=== PATIENT | female | born 1970 ===

== ENCOUNTER 2017-07-30 08:35 | Day surgery (SDC) | payer BC ==
[2017-07-24 16:17] VITALS: BMI 42.0
[~2017-07-30] VITALS: Ht 160 cm; Wt 109.1 kg
--- NOTE | 2017-07-30 08:01 | History and Physical ---
History & Physical Date Jul 30, 2017. Chief Complaint Right ankle/hindfoot pain History of Present Illness The patient is a 46 year old female with complaints of persistent right ankle and hindfoot pain with worsening flat foot deformity. She was treated conservatively but has failed all conservative tx. She is now being set up for surgical tx. Past Medical/Surgical History PMH: DM, HTN, depression, obesity, genital herpes, hypokalemia, elevated liver enzymes Past surgical hx: left breast biopsy, ORIF femur fx, ankle surgery, right knee fx surgery in 2002 Social hx: Denies tobacco use and occasionally alcohol use. Family hx: noncontributory Allergies Coded Allergies: Adhesives (Verified Allergy, Unknown, SKIN IRRITATION WITH TAPE,STERI STRIPS, 07/24/17) Morphine (Verified Allergy, Unknown, ITCHY, 07/24/17) Home Medications Scheduled Buspirone Hcl (Buspirone Hcl), 20 MG PO QAM Lamotrigine (Lamictal), 50 MG PO BID Lisinopril (Zestril), 40 MG PO QAM Metformin Hcl (Glucophage), 500 MG PO BID Multivitamin (Multivitamin), 1 TAB PO QAM Sertraline (Zoloft), 50 MG PO QAM Valacyclovir (Valtrex), 500 MG PO QAM [Hydrochlorothiazide], 1 TAB PO QAM Scheduled PRN Ibuprofen (Advil), 800 MG PO BID PRN for RN Physical Examination Skin: warm/dry, no rash Eyes: normal inspection ENT: normal ENT inspection Head: normocephalic, atraumatic Neck: supple, no adenopathy, trachea midline Respiratory/Chest: lungs clear, normal breath sounds, no respiratory distress Cardiovascular: regular rate, rhythm Abdomen / GI: normal bowel sounds, non tender Extremities: + pertinent finding (Right ankle: pes planovalgus deformity. Decrease ROM, particularly with dorsiflexion. Tender at the medial and lateral hindfoot. ) Neurologic/Psych: no motor/sensory deficits, alert, oriented x 3 Diagnosis Right hindfoot osteoarthritis Right achilles contracture Plan of Treatment Recommend a right triple arthrodesis, percutaneous tendoachilles lengthening, application of platelet rich plasma. All potential risks, benefits, complications, alternatives, and rehab have been discussed and the patient wishes to proceed. She will be scheduled for 07.31.17 with plan of ASA 81 mg BID x 4-6 wks for DVT prophylaxis.
[~2017-07-30 08:35] MED LIST: BUPIVACAINE 0.25% 30 ML VIAL ONE; BUSP-8 PO; CEFAZOLIN 2000MG IV PUSH 15 ML IV SCH; DEXAMETHASONE SOD INJ 4 MG/ML VIAL ONE; EpINEphrine INJ 1MG/ML AMP 1 MG/ML AMP ONE; GLC/500 PO; HYDROCHLOROTHIAZIDE PO; IBUP-1050 PO; LACTATED RINGER'S 1000ML 1,000 ML IV SCH; LAMO25TA PO; LISI40TA PO; MULT-506 PO; SERT50TA PO; VALA500T60 PO
[2017-07-30 09:03] VITALS: BP 147/91; PULSE 71; TEMP 36.7; O2SAT 96; BMI 42.0
[2017-07-30 09:06] VITALS: BP 147/91; PULSE 71; TEMP 36.7; O2SAT 96; Ht 160 cm; Wt 109.1 kg
[2017-07-30] MEDS ORDERED: MIDAZOLAM HCL 1 MG/ML 2ML VIAL ONE (09:18)
[2017-07-30] MEDS ORDERED: FENTANYL CITRATE INJ 50 MCG/1 ML 2 ML VIAL ONE ×2 (09:19)
--- NOTE | 2017-07-30 10:39 | History & Physical Bridge Note ---
H&P Re-Evaluation Bridge Note: I have examined the patient, reviewed the History & Physical and in the interval since the performance of the History & Physical I have noted the following changes of clinical significance: No changes noted
[2017-07-30] MEDS ORDERED: BUPIVACAINE 0.5 % 5 MG/1 ML PF 10ML VIAL ONE (10:40)
[2017-07-30] MEDS ORDERED: BACITRACIN 50000 UNIT VIAL ONE (11:18)
[2017-07-30] MEDS ORDERED: BUPIVACAINE/EPINEPHRINE 0.5% MPF 1:200,000 30 ML VIAL ONE (11:18)
[2017-07-30] MEDS ORDERED: BUPIVACAINE 0.5 % 5 MG/1 ML MPF 30ML VIAL ONE (11:23)
[2017-07-30] MEDS ORDERED: ATROPINE SULFATE 0.1 MG/ML 5ML SYR IV PRN (11:30)
[2017-07-30] MEDS ORDERED: FENTANYL CITRATE INJ 50 MCG/1 ML 2 ML VIAL IV PRN (11:30)
[2017-07-30] MEDS ORDERED: PROMETHAZINE HCL INJ 6.25 MG in SODIUM CHLORIDE 0.9% 50ML 50 ML IV PRN (11:30)
[2017-07-30] MEDS ORDERED: ONDANSETRON INJ 2 MG/ML 2 ML VIAL IV PRN (11:30)
[2017-07-30] MEDS ORDERED: EpHEDrine SULFATE INJ 50 MG/ML AMP IV PRN (11:30)
[2017-07-30] MEDS ORDERED: DEXAMETHASONE SOD INJ 4 MG/ML VIAL ONE (12:23)
[2017-07-30] MEDS ORDERED: SODIUM CHLORIDE 0.9% INJ 10 ML VIAL ONE (12:23)
[2017-07-30] MEDS ORDERED: EpHEDrine SULFATE 50MG/5ML SYR ONE (12:23)
[2017-07-30] MEDS ORDERED: LIDOCAINE HCL 2% 2 ML VIAL (20MG/ML) ONE (12:23)
[2017-07-30] MEDS ORDERED: PROPOFOL IV EMULSION 10 MG/ML 20 ML VIAL IV ONE ×2 (12:23→12:54)
[2017-07-30] MEDS ORDERED: ONDANSETRON INJ 2 MG/ML 2 ML VIAL ONE (12:23)
[2017-07-30] MEDS ORDERED: LARYING-O-JET KIT (LTA) ONE (12:23)
[2017-07-30] MEDS ORDERED: ROCURONIUM BROMIDE 10 MG/ML 5 ML VIAL IV ONE (12:23)
[2017-07-30] MEDS ORDERED: PHENYLEPHRINE 100MCG/ML 5ML SYR ONE (12:23)
[2017-07-30] MEDS ORDERED: GLYCOPYRROLATE INJ 0.2 MG/ML VIAL ONE (12:23)
[2017-07-30] MEDS ORDERED: NEOSTIGMINE METHYLSULFATE 5 MG/5 ML SYR ONE (12:23)
[2017-07-30] MEDS ORDERED: CALCIUM CHLORIDE 10% 10 ML SYR ONE (12:44)
[2017-07-30] MEDS ORDERED: THROMBIN 5000 UNITS KIT ONE (12:44)
--- NOTE | 2017-07-30 14:06 | [facility] Post Operative Brief Note ---
Immediate Operative Summary Operative Date Jul 30, 2017. Pre-Operative Diagnosis Right hindfoot osteoarthritis, Right achilles contracture Post-Operative Diagnosis Right hindfoot osteoarthritis, Right achilles contracture, EXOSTOSIS tALUS Procedure(s) Performed Right Triple Arthrodesis, Percutanteous Tendon Achilles Lengthening, Application of Platelet Rich Plasma, Exostectomy Talus Surgeon Dr. Evangelista Yarn Texture Machine Operator Surgeon(s) Beni Marcano PA-C Estimated Blood Loss 10 cc Findings Consistent with Post-Op Diagnosis Specimens none per surgeon Drains HV x 1 Anesthesia Type General Regional Complication(s) none Disposition Accompanied Pt To Recover: no Disposition: Recovery Room / PACU
[2017-07-30] MEDS ORDERED: ASPI81TA28 PO (14:13)
[2017-07-30] MEDS ORDERED: OXYSR10 PO (14:13)
[2017-07-30] MEDS ORDERED: OXYC-57 PO (14:13)
[2017-07-30] MEDS ORDERED: PROM25TA9 PO (14:13)
--- NOTE | 2017-07-30 14:14 | Discharge Instructions ---
Discharge Instructions Date of Service Jul 30, 2017. Admission Reason for Admission: Right Ankle Pain, Retained Hardware Discharge Discharge Diagnosis / Problem: right ankle hindfoot osteoarthritis Discharge Goals Goal(s): Decrease discomfort, Improve function Activity Recommendations Activity Limitations: per Instructions/Follow-up section Weightbearing Status: Right non-weightbearing . Instructions / Follow-Up Instructions / Follow-Up ACTIVITY RECOMMENDATIONS: Limitations: No weight bearing to affected limb at all times. SPECIAL CARE INSTRUCTIONS: * Some drainage onto the dressing is normal and is no cause for alarm. * Some swelling is natural especially after walking. * When resting, keep your foot elevated above the level of your heart. * Call [facility] if you notice: -Increased drainage -Fever over 101 degrees F -Severe constant pain BANDAGE: * Leave bandage/cast in place unless otherwise directed. * Keep bandage/cast dry at all times. FOLLOW UP VISIT WITH DR. YEAGER If appointment is not already scheduled: Please call [facility] after you get home today to schedule a follow-up appointment for [address] Yeager at . Current Hospital Diet Patient's current hospital diet: Discharge Diet Recommended Diet: Diabetes Type 2 Diet Procedures Procedures Performed: Right Triple Arthrodesis, Percutanteous Tendon Achilles Lengthening, Application of Platelet Rich Plasma, Exostectomy Talus Pending Studies Studies pending at discharge: no Medical Emergencies . Who to Call and When: Medical Emergencies: If at any time you feel your situation is an emergency, please call 911 immediately. . Non-Emergent Contact Non-Emergency issues call your: Surgeon Call Non-Emergent contact if: temperature is above 101, your pain is not controlled, your pain is worsening . "Provider Documentation" section prepared by Beni Marcano. .
[2017-07-30] MEDS ORDERED: OXYCODONE/ACETAMINOPHEN 5-325 TAB PO PRN (14:15)
--- NOTE | 2017-07-30 14:25 | DIAGNOSTIC IMAGING REPORT ---
R ANKLE 2 VIEWS CLINICAL HISTORY: 46 years-old Female presenting with RT TRIPLE ARTHRODESIS. TECHNIQUE: 2 fluoroscopic spot image(s) obtained as part of an intraoperative procedure. COMPARISON: None. FINDINGS/IMPRESSION: For lack screw fixation of the midfoot and hindfoot. There appears to be arthrodesis of the talonavicular, talocalcaneal, and calcaneocuboid articulations. Extensive degenerative changes or arthrodesis at the ankle mortise. Please see surgical report for further details. Fluoroscopy dosage (mGy): 0.65. Fluoroscopy time: 23.7. Number of fluoroscopic spot images: 2. Electronically signed by: Miguel Black M.D. 07/30/2017 2:24 PM Dictated Date/Time: 07/30/2017 2:22 PM
--- NOTE | 2017-07-30 14:59 | DIAGNOSTIC IMAGING REPORT ---
R ANKLE MIN 3 VIEWS ROUTINE, R FOOT MIN 3 VIEWS ROUTINE CLINICAL HISTORY: Postop. COMPARISON STUDY: Right ankle 07/30/2017. FINDINGS: Overlying splint material obscures fine bony detail. Moderate osteoarthritis at the tibiotalar joint is again noted. Skin silas at the posterior aspect of the ankle. Surgical drains are in place. There are 4 cannulated screws resulting triple arthrodesis of the hindfoot. The hardware appears intact. No fracture or dislocation. IMPRESSION: Status post triple arthrodesis of the hindfoot. The hardware appears intact. Electronically signed by: Kodak Huber M.D. 07/30/2017 2:57 PM Dictated Date/Time: 07/30/2017 2:48 PM
[2017-07-30 15:00] VITALS: BP 138/68; PULSE 83; TEMP 37.1; O2SAT 96
[2017-07-30 15:30] VITALS: BP 147/84; PULSE 90; TEMP 37.1; O2SAT 97
--- NOTE | 2017-07-30 15:40 | OPERATIVE REPORT ---
DATE OF OPERATION: 07/30/2017 PREOPERATIVE DIAGNOSES: 1. Right hindfoot degenerative joint disease with osteoarthritis. 2. Achilles tendon contracture. POSTOPERATIVE DIAGNOSES: 1. Right hindfoot degenerative joint disease with osteoarthritis. 2. Achilles contracture. 3. Exostosis of the talus. PROCEDURES: 1. Right triple arthrodesis. 2. Percutaneous tendo Achilles lengthening. 3. Exostectomy of the talus. 4. Application of platelet rich plasma concentrate. SURGEON: Dr. Vitaliy Evangelista. CANDY MIXER: Beni Marcano PA-C, who was present for patient positioning, sterile prep and drape, management of retractors and instruments. He was present through the critical portions of the case including wound closure, application of sterile dressing and transport of the patient to recovery. ANESTHESIA: General LMA with popliteal block. SPECIMENS: None. DRAINS: Hemovac x1. COMPLICATIONS: None. BLOOD LOSS: 10 mL. PERTINENT HISTORY: This is a 46-year-old female who had previous traumatic injury to her right hindfoot and ankle. She had prior surgery at another center. She had a ligament reconstruction and bone fixation. She had developed significant pain and deformity over the last several years and has failed all measures of conservative management including injections, anti-inflammatories, topical agents, use of a brace, assistive devices and shoe inserts. Radiographs and CT scans demonstrate severe degenerative arthritis with loss of joint spaces, marginal osteophytes, subchondral sclerosis and marginal osteophytes of the hindfoot including the subtalar, talonavicular and calcaneocuboid joints. She also had degenerative arthritis of the ankle also noted. The patient was then scheduled for surgery as indicated. DESCRIPTION OF PROCEDURE: The patient was taken to the Operating Suite, placed supine on the Operating Room table, after consent and identification of the proper operative site, the patient was anesthetized. LMA was placed. Tourniquet was placed high on the right lower extremity. Right lower extremity was then sterilely prepped and draped in the usual fashion. Exsanguinated with an Esmarch bandage and tourniquet inflated to 350 mmHg. Next, the foot was held in dorsiflexion and a three-part percutaneous incision was made with an 11-blade scalpel to lengthen the Achilles tendon using standard technique. Next, the stab incisions were then closed using interrupted skin silas. Next, the 15-blade scalpel was used to make an incision from the distal aspect of the fibula to the base of the fourth metatarsal. The incision was deepened through subcutaneous tissue and meticulous hemostasis was obtained with electrocautery. Subcutaneous nerves were identified, retracted and protected. The extensor digitorum brevis was identified and was sharply elevated from the anterior process of the calcaneus revealing the sinus tarsi. Next, the sinus tarsi was debrided carefully with a rongeur and 15-blade scalpel. A cervical lamina business continuity coordinator was placed in the sinus tarsi opening the subtalar joint. Subtalar joint was then prepared with the use of a curette and rongeur to resect the articular surfaces down to subchondral bleeding bone. Irrigation was performed with sterile normal saline and then 2-mm drill bit was used to further prepare the joint surface with multiple drill holes in both surfaces of the subtalar joint and a small osteotome and mallet were used to fish scale the joint surfaces to increase surface area and bleeding. Next, the calcaneocuboid joint was then entered with the 15-blade scalpel, debrided of soft tissue and then a lamina business continuity coordinator was placed in the joint opening it for preparation with a curette and rongeur to remove any articular surface down to subchondral bleeding bone. Next, the 2-mm drill bit was used to further prepare the joint with multiple drill holes into the joint and then a small osteotome and mallet were used to fish scale the joint. Next, the 15-blade was used to make an incision from the distal aspect of the tibia to the base of the naviculocuneiform joint. The incision was deepened through subcutaneous tissue. Meticulous hemostasis obtained with electrocautery. A Weitlaner retractor was placed in the wound. The greater saphenous vein was identified, retracted and protected. The capsule of the talonavicular joint was then entered sharply with a 15-blade scalpel and elevated both superior and inferiorly. There was noted to be a large exostosis on the dorsal and dorsal medial aspects of the talus and a rongeur was then used to resect the large exostoses, which were providing a soft tissue impingement with a rongeur. A small Alba was placed on the neck of the talus and further soft tissue elevation was performed with the 15-blade scalpel until the talonavicular joint was clearly visualized. The articular surface was then debrided with curette and rongeur and a cervical lamina business continuity coordinator was placed in the joint. Next, it was irrigated with sterile normal saline and a 2-mm drill bit was used to make multiple holes in the joint surfaces and fish scaling was performed with a small osteotome and mallet. Next, the medial and lateral incisions were irrigated with sterile normal saline and the joint surfaces were then aligned appropriately based on alignment of the lower extremity and the kneecap. Subtalar joint was aligned and then a 7.3-mm cannulated guidepin was driven from the superior aspect of the talus across the subtalar joint into the calcaneus under fluoroscopic control. Next, an appropriate length 7.3-mm short-thread screw was placed under fluoroscopic control and countersunk slightly. Next, the guidepin was removed. Next, 1.25-mm guidepins x 2 were used to stabilize the talonavicular joint in appropriate alignment and then the calcaneocuboid joint was then stabilized with appropriate alignment under fluoroscopic control. Next, appropriate length of 4-mm short-thread cannulated screws were placed across the talonavicular and calcaneocuboid joints respectively under fluoroscopic control. All guidepins were removed. Wounds were irrigated with sterile normal saline and bone graft was then packed in and around the subtalar, talonavicular and calcaneocuboid joints which was comprised of 30 cc of cancellous bone chips. A 10-Amharic single lumen Hemovac drain was then placed in the lateral aspect of the wound exiting dorsolaterally and the extensor digitorum brevis then closed back to its origin with interrupted 2-0 Vicryl sutures. The talonavicular joint capsule was closed using 2-0 Vicryl sutures. The dermis was closed using buried interrupted 3-0 Vicryl sutures medially and laterally and then skin incisions were closed using 4-0 Nylon sutures. A sterile compressive dressing and bulky Robbi-Cool plaster splint was applied, overwrapped with an Doug wrap. The tourniquet was released. DISPOSITION: The patient awakened and taken to Recovery in stable condition. I attest to the content of the Intraoperative Record and any orders documented therein. Any exception s are noted below.
--- NOTE | 2017-07-30 15:44 | Anesthesiology Progress Note ---
Anesthesia Post Op Note Date & Time Jul 30, 2017 at 15:44 Vital Signs Pain Intensity: 6.0 Vital Signs Past 12 Hours Date Time Temp Pulse Resp B/P (MAP) Pulse Ox O2 Delivery O2 Flow Rate FiO2 07/30/17 14:45 36.7 79 16 131/74 95 Room Air 07/30/17 14:35 86 18 148/85 96 Room Air 07/30/17 14:25 79 18 146/84 100 Oxymask 10 07/30/17 14:15 79 20 138/76 96 Oxymask 10 07/30/17 14:08 36.6 73 14 111/61 98 Oxymask 10 07/30/17 09:06 36.7 71 18 147/91 (109) 96 Room Air 07/30/17 09:03 36.7 71 18 147/91 (109) 96 Room Air Notes Mental Status: alert / awake / arousable, participated in evaluation Pt Amnestic to Procedure: Yes Nausea / Vomiting: adequately controlled Pain: adequately controlled Airway Patency, RR, SpO2: stable & adequate BP & HR: stable & adequate Hydration State: stable & adequate Anesthetic Complications: no major complications apparent
== END 2017-07-30 16:15 | disposition home or self-care (01) ==
LOC: C.ACU 08:35
PROVIDERS: ATTEND Orthopaedic Surgery Sports Medicine
DX: M19.071 Primary osteoarthritis, right ankle and foot (principal); M67.01 Short Achilles tendon (acquired), right ankle; E11.9 Type 2 diabetes mellitus without complications; A60.09 Herpesviral infection of other urogenital tract; I10 Essential (primary) hypertension; F32.9 Major depressive disorder, single episode, unspecified; E66.01 Morbid (severe) obesity due to excess calories; Z68.41 Body mass index [BMI] 40.0-44.9, adult; Z88.5 Allergy status to narcotic agent
CPT/HCPCS: 0232T; 27612; 28288; 28715